=== PATIENT | male | born 1930 | race Asian ===

== ENCOUNTER 2019-05-30 10:53 | Emergency (ER) | payer OTHER, MEDICAID ==
[~2019-05-30] VITALS: Ht 167.6 cm; Wt 68.0 kg
[2019-05-30 11:59] LABS: HEMATOCRIT. 27.5 % (42.0-52.0); HEMOGLOBIN. 9.5 g/dL (14.0-18.0); MEAN CORPUSCULAR HEMOGLOBIN 31.1 pg (28.0-32.0); MEAN CORPUSCULAR VOLUME 90.3 fL (80.0-94.0); MEAN PLATELET VOLUME 8.2 fl (7.4-10.4); PLATELET 173 x1000/uL (130-400); RED BLOOD CELL COUNT 3.05 mill/uL (4.7-6.1); RED CELL DISTRIBUTION WIDTH 16.7 % (11.6-14.6)
[2019-05-30 12:00] LABS: CHLORIDE 100 mEq/L (98-107)
[2019-05-30] MEDS ORDERED: KETOROLAC 15MG/ML VIAL IV ONE (12:15)
[2019-05-30 12:30] LABS: PLATELET ESTIMATE NORMAL
[2019-05-30 14:49] VITALS: BP 138/75
== END 2019-05-30 15:26 | disposition home or self-care (01) ==
LOC: ER 11:01
DX: R55 Syncope and collapse (principal); I10 Essential (primary) hypertension; G31.9 Degenerative disease of nervous system, unspecified
CPT/HCPCS: 36415; 70450; 71045; 80053; 83880; 84484; 85025; 93005; 96374; 99284; J1885